=== PATIENT | female | born 1935 | race Caucasian/White ===

== ENCOUNTER 2021-10-10 10:57 | Outpatient (CLI) | payer MEDICARE, SELFPAY ==
--- NOTE | ~2021-10-10 | MM_ITS ---
EXAMINATION: MM screening comfort BI w lula HISTORY: Screening mammogram TECHNIQUE: Craniocaudal and mediolateral oblique 3-D tomosynthesis images were obtained and synthetic 2-D images were generated. CAD analysis was submitted and interpreted. COMPARISON: 07/14/2020, 10/06/2018, 11/08/2015 bilateral screening mammogram examinations BREAST PARENCHYMAL COMPOSITION: There are scattered areas of fibroglandular density. FINDINGS: There is no evidence of suspicious mass, calcification, or architectural distortion to sugg est malignancy in either breast. There has been no suspicious interval change. IMPRESSION: 1. No mammographic evidence of malignancy. 2. Recommend routine screening mammography in one year. BI-RADS Category 1: Negative Reviewed, dictated and finalized at location A. EXAMINER
== END 2021-10-10 10:58 | disposition home or self-care (01) ==
LOC: ANHIMG 10:59
PROVIDERS: PCP Internal Medicine; Visit Provider Internal Medicine
DX: Z12.31 Encounter for screening mammogram for malignant neoplasm of breast (principal)
CPT/HCPCS: 77063; 77067

== ENCOUNTER 2023-04-04 16:06 | Emergency (ER) | payer MEDICARE, SELFPAY ==
[2023-04-04 16:31] VITALS: BP 142/70; PULSE 108; RESP 20; TEMP 38.6; O2SAT 97
--- NOTE | 2023-04-04 16:36 | ED.GENADULT ---
HPI - General Adult General Chief complaint: Nausea/Vomiting/Diarrhea Stated complaint: diarrhea after eating Source: patient and RN notes reviewed History of Present Illness HPI narrative: 87 yo F presents to urgent care with complaints of diarrhea x 1 week. pt states every time she eats anything, she has diarrhea. Pt also stating she had dental work done yesterday where she had her front, upper, teeth replaced. Pt states this is the 2nd time for this procedure due to complications from the first time. Pt also found to be febrile in clinic. Denies any fevers that she knew of at home. Denies any dental pain, facial swelling, sore throat, ear pain, chest pain, SOB, abdominal pain, vomiting, dysuria, HDZ, dizziness, or other complaints. Pt was last on clindamycin in early February for her teeth but nothing since. Related Data Home Medications Medication Instructions Recorded Confirmed albuterol sulfate 90 mcg/actuation 2 puff inhalation Q4-6H PRN 10/28/19 aerosol inhaler (Ventolin HFA) aspirin 81 mg chewable tablet 81 mg PO DAILY 10/28/19 cholecalciferol (vitamin D3) 25 1,000 unit PO DAILY 10/28/19 mcg (1,000 unit) tablet (Vitamin D3) acetaminophen 500 mg capsule 500 mg PO Q6H PRN 09/13/20 carboxymethylcellulose 0.5 drp ophthalmic (eye) 09/13/20 %-glycerin 0.9 % (PF) eye drops,dropperette (Refresh Optive Sensitive (PF)) cetirizine 10 mg tablet (Zyrtec) 5 mg PO DAILY PRN 09/13/20 mecobalamin (vitamin B12) 1,000 1,000 mcg sublingual DAILY 09/13/20 mcg disintegrating tablet,sublingual losartan 25 mg tablet mg 04/04/23 Allergies Allergy/AdvReac Type Severity Reaction Status Date / Time lovastatin Allergy Mild unknown Verified 10/27/20 14:34 azithromycin Allergy Unknown unknown Verified 10/27/20 14:34 levofloxacin Allergy Unknown Unknown Verified 10/27/20 14:34 z pack Allergy Unknown unknown Uncoded 09/13/20 13:57 Review of Systems Review of Systems: Pertinent positives and pertinent negatives per HPI. [facility] Past Medical History Medical History (Updated 04/04/23 @ 17:02 by Catina Payne, [employer]) Cataract History of hemorrhoids HLD (hyperlipidemia) Lumbar radiculopathy Osteoarthritis Raynauds syndrome Family History Family History (Updated 10/27/19 @ 17:14 by Kaci Santana CMA) Mother Family history of lung cancer, Onset Age: 87 Sibling Hypertension Diabetes mellitus Hyperlipidemia Father No problems noted. Social History Social History Smoking status: Former smoker Alcohol intake: never Comments At the time of my signature, I reviewed and agree with the nursing past medical, surgical, social, and family history. There is no relevant family history pertinent to the patient complaint. Exam Narrative: GENERAL: This is a well-nourished, well-developed patient, in no apparent distress. HEAD: normocephalic, atraumatic. EYES: Sclera clear/white. Vision is grossly intact. EARS: External ears normal, auditory canals clear and without drainage, TMs normal without perforation. Hearing grossly intact. NOSE: External nose normal with no obvious nasal discharge, nares without redness, no rhinorrhea. THROAT: Mucous membranes moist, posterior pharynx clear. NECK: Neck supple, non-tender without lymphadenopathy, masses or thyromegaly. CARDIOVASCULAR: Regular rate and rhythm without murmurs, gallops, or rubs. RESPIRATORY: Clear to auscultation. Breath sounds equal bilaterally. No wheezes, rales, or rhonchi. GASTROINTESTINAL: Abdomen soft, non-tender, nondistended. Bowel sounds are active. No hepato-splenomegaly, or palpable masses. No guarding. SKIN: warm, intact with no suspicious lesions or rash, good texture and turgor. NEURO: awake, alert, and oriented to person, place and time. There were no obvious focal neurologic abnormalities. Course Course Level of Care: Express Care Visit Vital Signs
[2023-04-04 17:08] VITALS: TEMP 38.6
[2023-04-04] MEDS: ACETAMINOPHEN 500 MG TABLET PO (17:08)
--- NOTE | 2023-04-04 17:17 | PC.NURSE ---
tylenol 500 po given. provider cancelled first order
== END 2023-04-04 17:19 | disposition home or self-care (01) ==
PROVIDERS: Emergency Provider Nurse Practitioner Family; PCP Internal Medicine
DX: K52.9 Noninfective gastroenteritis and colitis, unspecified (principal); R50.9 Fever, unspecified; Z20.822 Contact with and (suspected) exposure to COVID-19; Z87.891 Personal history of nicotine dependence; E78.5 Hyperlipidemia, unspecified; M19.90 Unspecified osteoarthritis, unspecified site; I73.00 Raynaud's syndrome without gangrene; Z79.82 Long term (current) use of aspirin
CPT/HCPCS: 87426; 87804; 99213; A9270; C9803; G0463

== ENCOUNTER 2023-10-22 13:03 | Outpatient (CLI) | payer MEDICARE, SELFPAY ==
--- NOTE | 2023-10-22 14:45 | NEURO_ITS ---
Impression: # Complains of numbness and back pain. No history of spine surgery. Does have osteoarthritis # Mild right sensory Carpal Tunnel Syndrome. 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 # Needle/EMG exam revealed decreased motor unit potentials in right lower extremity. # Clinical correlation recommended. Nerve Conduction Studies Anti Sensory Summary Table Stim Site NR Peak (ms) P-T Amp (?V) Site1 Site2 Delta-P (ms) Dist (cm) Phani (m/s) Left Median Anti Sensory (2-3nd Digit) Wrist 3.2 31.3 Wrist 2-3nd Digit 3.2 14.0 44 Wrist 3.4 56.7 Wrist 2-3nd Digit 3.2 14.0 44 Right Median Anti Sensory (2-3nd Digit) Wrist 4.3 14.4 Wrist 2-3nd Digit 4.3 14.0 33 Wrist 5.3 7.4 Wrist 2-3nd Digit 4.3 14.0 33 Left Radial Anti Sensory (Base 1st Digit) Wrist 2.2 25.3 Wrist Base 1st Digit 2.2 0.0 Right Radial Anti Sensory (Base 1st Digit) Wrist 2.9 12.0 Wrist Base 1st Digit 2.9 0.0 Left Saphenous Anti Sensory (Ant Med Mall) NO RESPONSE 14cm NR 14cm Ant Med Mall 0.0 Right Saphenous Anti Sensory (Ant Med Mall) NO RESPONSE 14cm NR 14cm Ant Med Mall 0.0 Left Sup Fibular Anti Sensory (Ant Lat Mall) NO RESPONSE 14 cm NR 14 cm Ant Lat Mall 16.0 Right Sup Fibular Anti Sensory (Ant Lat Mall) NO RESPONSE 14 cm NR 14 cm Ant Lat Mall 16.0 Left Sural Anti Sensory (Lat Mall) NO RESPONSE Calf NR Calf Lat Mall 16.0 Right Sural Anti Sensory (Lat Mall) NO RESPONSE Calf NR Calf Lat Mall 16.0 Left Ulnar Anti Sensory (5th Digit) Wrist 3.0 26.5 Wrist 5th Digit 3.0 14.0 47 Right Ulnar Anti Sensory (5th Digit) Wrist 2.8 46.8 Wrist 5th Digit 2.8 14.0 50 Motor Summary Table Stim Site NR Onset (ms) O-P Amp (mV) Site1 Site2 Delta-0 (ms) Dist (cm) Phani (m/s) Left Median Motor (Abd Poll Brev) Wrist 3.1 2.9 Elbow Wrist 5.0 29.0 58 Elbow 8.1 4.1 Right Median Motor (Abd Poll Brev) Wrist 2.8 2.6 Elbow Wrist 5.9 27.0 46 Elbow 8.7 1.7 Left Peroneal Motor (Vastus Med) Ankle 4.3 2.4 Popit Ankle 7.5 39.0 52 Popit 11.8 2.3 Right Peroneal Motor (Vastus Med) Ankle 5.5 1.7 Popit Ankle 8.0 37.0 46 Popit 13.5 1.8 Left Tibial Motor (Abd Krishnan Brev) Ankle 4.5 1.6 Knee Ankle 7.3 38.0 52 Knee 11.8 1.6 Right Tibial Motor (Abd Krishnan Brev) Ankle 5.2 1.6 Knee Ankle 8.5 41.0 48 Knee 13.7 0.6 Left Ulnar Motor (Abd Dig Minimi) Wrist 3.0 7.6 A Elbow Wrist 4.7 28.0 60 A Elbow 7.7 6.4 Right Ulnar Motor (Abd Dig Minimi) Wrist 2.7 6.8 A Elbow Wrist 5.1 29.0 57 A Elbow 7.8 5.9 F Wave Studies NR F-Lat (ms) L-R F-Lat (ms) Left Median (Mrkrs) (Abd Poll Brev) 28.44 1.52 Right Median (Mrkrs) (Abd Poll Brev) 29.96 1.52 Left Peroneal (Mrkrs) (EDB) 56.32 1.69 Right Peroneal (Mrkrs) (EDB) 58.01 1.69 Left Tibial (Mrkrs) (Abd Hallucis) 55.28 2.42 Right Tibial (Mrkrs) (Abd Hallucis) 57.70 2.42 Left Ulnar (Mrkrs) (Abd Dig Min) 28.80 0.56 Right Ulnar (Mrkrs) (Abd Dig Min) 29.36 0.56 EMG Side Muscle Nerve Root Ins Act Fibs Amp Dur Recrt Comment Right 1stDorInt Ulnar C8-T1 Nml Nml Nml Nml Nml
== END 2023-10-22 13:04 | disposition home or self-care (01) ==
LOC: ANHNEURO 13:04
PROVIDERS: PCP Internal Medicine; Visit Provider Nurse Practitioner
DX: G56.01 Carpal tunnel syndrome, right upper limb (principal); G57.83 Other specified mononeuropathies of bilateral lower limbs
CPT/HCPCS: 95886; 95913

== ENCOUNTER → 2023-12-16 12:11 | Outpatient (CLI) | payer MEDICARE, SELFPAY ==
--- NOTE | ~2023-12-16 | DEXA_ITS ---
Bone Density Report Name: MONAE LEYVA Age: 88 Sex: Female Ethnicity: White Date of : 1935 Indication: postmenopausal; screening for osteoporosis; height loss; asthma or emphysema; Referring Provider: BRIANNA, JULISA Pope Study: Bone densitometry was performed. Exam Date: December 16, 2023 Accession number: [id number] Bone Density: Region BMD T-score Z-score Classification AP Spine (L1-L4) 1.210 1.5 4.4 Normal Femoral Neck (Left) 0.828 -0.2 2.3 Normal Total Hip (Left) 0.924 -0.1 2.2 Normal Femoral Neck (Right) 0.821 -0.3 2.3 Normal Total Hip (Right) 0.840 -0.8 1.5 Normal Total Hip Mean 0.882 -0.5 1.9 Normal World Health Organization criteria for BMD impression classify patients as: Normal (T-score at or above -1.0), Osteopenia (T-score between -1.0 and -2.5), or Osteoporosis (T-score at or below -2.5). 10-year Fracture Risk: FRAX not reported because: All T-scores for Spine Total, Hip Total, Femoral Neck at or above -1.0 Previous Exams: Region Exam Age BMD T-score BMD Change BMD Change Date g/cm2 vs Baseline vs Previous AP Spine(L1-L4) 12/16/2023 88 1.210 1.5 0.017 0.017 11/08/2015 80 1.193 1.3 Total Hip(Left) 12/16/2023 88 0.924 -0.1 -0.046* -0.046* 11/08/2015 80 0.970 0.2 Total Hip(Right) 12/16/2023 88 0.840 -0.8 -0.082* -0.082* 11/08/2015 80 0.922 -0.2 *Denotes significance at 95% confidence level, LSC for AP Spine = 0.022 g/cm2, LSC for Total Hip = 0.027 g/cm2 Clinical Information Provided by Patient: Has used the following medications: Vitamin D Has the following medical conditions: Asthma or Emphysema Patient maximum height was 65 Menopause Age: 54 No regular weight bearing exercise Does not regularly consume dairy products Drinks caffeinated beverages Onset of menses at age 10 Number of children 3 Impression: The patient has normal bone mass. The BMD for the Total Hip(Left) decreased, changing by -0.046 since the last DXA exam. The BMD for the Total Hip(Right) decreased, changing by -0.082 since the last DXA exam. Discussion: BONE DENSITY IS ABOVE THE MINIMUM DESIRABLE LEVEL AT ALL SKELETAL SITES TESTED. This patient?s bone mineral density is above the minimum desirable level (T-score -1.0 or better) at all sites measured. The patient should follow a healthful lifestyle (good nutrition with adequate calcium and vitamin D, and appropriate weight-bearing exe
== END ==
PROVIDERS: PCP Nurse Practitioner; Visit Provider Nurse Practitioner
DX: M85.88 Other specified disorders of bone density and structure, other site (principal); Z78.0 Asymptomatic menopausal state
CPT/HCPCS: 77080